=== PATIENT | female | born 1975 | race Caucasian/White ===

== ENCOUNTER 2017-08-04 08:00 | Emergency (ER) | payer MEDICAID ==
--- NOTE | 2017-08-04 08:43 | EDM.PDOC ---
ED HPI GENERAL MEDICAL PROBLEM - General Chief Complaint: Abdominal Pain Stated Complaint: ABDOMINAL PAIN Time Seen by Provider: 08/04/17 08:25 Source of Information: Reports: Patient, Family History Limitations: Reports: No Limitations - History of Present Illness INITIAL COMMENTS - FREE TEXT/NARRATIVE: 42-year-old female with right abdominal pain for the past 15 hours. It started roughly 5 PM last evening, is worsening and is now bothering her with movement. No fevers or chills. The pain started in the right upper abdomen but is now more generalized on the right side. She has a history of a cholecystectomy and tubal ligation. Denies diarrhea, nausea or vomiting or significant pain radiating to the back. No urinary symptoms. Onset: Gradual (Develop somewhat gradually last evening) Location: Reports: Abdomen Quality: Reports: Ache, Stabbing Severity: Moderate Associated Symptoms: Reports: No Other Symptoms Right Upper Abdomen Pain Score (Numeric/FACES): 4 - Related Data Allergies Allergy/AdvReac Type Severity Reaction Status Date / Time No Known Allergies Allergy Verified 08/04/17 08:27 Home Meds: Home Meds Loratadine 10 mg PO DAILY 08/04/17 [History] Ranitidine [Zantac] 150 mg PO DAILY 08/04/17 [History] Past Medical History HEENT History: Reports: Allergic Rhinitis Gastrointestinal History: Reports: Cholelithiasis, 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: 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 Uterine Bleeding, Endometrial Ablation, Neurological History: Reports: Migraines Dermatologic History: Reports: Eczema - Past Surgical History GI Surgical History: Reports: Cholecystectomy Female Surgical History: Reports: Tubal Ligation Social & Family History - Tobacco Use Smoking Status *Q: Never Smoker - Caffeine Use Caffeine Use: Reports: Soda - Recreational Drug Use Recreational Drug Use: No ED ROS GENERAL - Review of Systems Review Of Systems: See Below Constitutional: Denies: Fever, Chills HEENT: Reports: No Symptoms Respiratory: Denies: Shortness of Breath, Pleuritic Chest Pain Cardiovascular: Denies: Chest Pain GI/Abdominal: Reports: Abdominal Pain. Denies: Diarrhea, Nausea, Vomiting : Reports: No Symptoms Skin: Reports: No Symptoms Psychiatric: Reports: No Symptoms ED EXAM, GI/ABD - Physical Exam Exam: See Below Exam Limited By: No Limitations General Appearance: Alert, No Apparent Distress Eyes: Bilateral: Normal Appearance (No jaundice) Respiratory/Chest: No Respiratory Distress, Lungs Clear Cardiovascular: Regular Rate, Rhythm GI/Abdominal Exam: Soft, Tender (Patient is tender with mild guarding across the right abdomen, somewhat worse in the upper abdomen) Course - Vital Signs Last Recorded V/S: Last Vital Signs Temp 97.5 F 08/04/17 08:27 Pulse 84 08/04/17 08:27 Resp 14 08/04/17 08:27 BP 126/83 08/04/17 08:27 Pulse Ox 94 L 08/04/17 08:27 - Orders/Labs/Meds Orders: Active Orders 24 hr Category Date Time Status Abdomen Pelvis wo Cont [CT] Stat Exams 08/04/17 09:27 Taken Labs: Laboratory Tests 08/04/17 08/04/17 08/04/17 Range/Units 08:50 08:50 08:50 WBC 6.3 (4.5-11.0) K/uL RBC 5.17 (3.30-5.50) M/uL Hgb 15.2 H (12.0-15.0) g/dL Hct 43.4 (36.0-48.0) % MCV 84 (80-98) fL MCH 29 (27-31) pg MCHC 35 (32-36) % Plt Count 343 (150-400) K/uL Neut % (Auto) 65 (36-66) % Lymph % (Auto) 24 (24-44) % [place] % (Auto) 9 H (2-6) % Eos % (Auto) 2 (2-4) % Baso % (Auto) 1 (0-1) % Sodium 137 L (140-148) mmol/L Potassium 4.2 (3.6-5.2) mmol/L Chloride 104 (100-108) mmol/L Carbon Dioxide 21 (21-32) mmol/L Anion Gap 16.2 H (5.0-14.0) mmol/L BUN 17 (7-18) mg/dL Creatinine 0.9 (0.6-1.0) mg/dL Est Cr Clr Drug Dosing 67.36 mL/min Estimated GFR (MDRD) > 60 (>60) Glucose 103 (74-106) mg/dL Calcium 8.2 L (8.5-10.1) mg/dL Total Bilirubin 0.2 (0.2-1.0) mg/dL AST 16 (15-37) U/L ALT 19 (12-78) U/L Alkaline Phosphatase 65 (46-116) U/L Total Protein 7.2 (6.4-8.2) g/dL Albumin 3.5 (3.4-5.0) g/dL Globulin 3.7 H (2.3-3.5) g/dL Albumin/Globulin Ratio 1.0 L (1.2-2.2) Lipase 114 (73-393) U/L - Re-Assessments/Exams Free Text/Narrative Re-Assessment/Exam: 08/04/17 08:43 The possibility of an appendicitis is present. CBC, CMP and lipase were obtained. 08/04/17 10:04 Labs were normal but with the persistent pain a CT the abdomen was obtained. This is normal as well, I asked the patient to use an anti-inflammatory for the next few days and return if worsening despite treatment. Departure - Departure Time of Disposition: 10:50 Disposition: Home, Self-Care 01 Condition: Good Clinical Impression: Abdominal pain Qualifiers: Abdominal location: right lower quadrant Qualified Code(s): R10.31 - Right lower quadrant pain - Discharge Information Instructions: Abdominal Pain, Adult Referrals: Alayna Vega PA [Primary Care Provider] - Forms: ED Department Discharge Care Plan Goals: Try ibuprofen or naproxen for the next 24-48 hours, increase diet and activity as tolerated and return if worsening or concerns. - My Orders Last 24 Hours: My Active Orders 08/04/17 09:27 Abdomen Pelvis wo Cont [CT] Stat - Assessment/Plan Last 24 Hours: My Active Orders 08/04/17 09:27 Abdomen Pelvis wo Cont [CT] Stat
== END 2017-08-04 10:50 | disposition home or self-care (01) ==
LOC: JP.ED 08:00
DX: R10.31 Right lower quadrant pain (principal); K21.9 Gastro-esophageal reflux disease without esophagitis; Z79.899 Other long term (current) drug therapy
CPT/HCPCS: 36415; 74176; 80053; 83690; 85025; 99284-25

== ENCOUNTER 2018-05-09 17:58 | Emergency (ER) | payer MEDICAID ==
--- NOTE | 2018-05-09 18:49 | EDM.PDOC ---
ED HPI GENERAL MEDICAL PROBLEM - General Chief Complaint: Abdominal Pain Stated Complaint: RI SIDE PAIN Time Seen by Provider: 05/09/18 18:35 Source of Information: Reports: Patient, Family History Limitations: Reports: No Limitations - History of Present Illness INITIAL COMMENTS - FREE TEXT/NARRATIVE: Abdominal pain all day, now right lower quadrant. Denies nausea or vomiting, some diarrhea. Cholecystectomy and tubal only past surgeries. Last ate 4 hours ago. 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: 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 Uterine Bleeding, Endometrial Ablation, Neurological History: Reports: Migraines Dermatologic History: Reports: Eczema - Past Surgical History GI Surgical History: Reports: Cholecystectomy Female Surgical History: Reports: Tubal Ligation Social & Family History - Tobacco Use Smoking Status *Q: Never Smoker - Caffeine Use Caffeine Use: Reports: Coffee - Recreational Drug Use Recreational Drug Use: No ED ROS GENERAL - Review of Systems Review Of Systems: See Below Constitutional: Denies: Fever HEENT: Reports: No Symptoms Respiratory: Denies: Shortness of Breath, Cough Cardiovascular: Denies: Chest Pain GI/Abdominal: Reports: Abdominal Pain. Denies: Constipation, Diarrhea, Nausea, Vomiting : Reports: No Symptoms Skin: Reports: No Symptoms Neurological: Reports: No Symptoms Psychiatric: Reports: No Symptoms ED EXAM, GI/ABD - Physical Exam Exam: See Below Exam Limited By: No Limitations General Appearance: Alert, No Apparent Distress Eyes: Bilateral: Normal Appearance Head: Atraumatic Respiratory/Chest: No Respiratory Distress, Lungs Clear Cardiovascular: Regular Rate, Rhythm GI/Abdominal Exam: Soft, Guarding, Rebound (some rebound tenderness in right lower quadrant), Tender Course - Vital Signs Last Recorded V/S: Last Vital Signs Temp 97.6 F 05/09/18 18:34 Pulse 93 05/09/18 18:34 Resp 18 05/09/18 18:34 BP 143/91 H 05/09/18 18:34 Pulse Ox 93 L 05/09/18 18:23 - Orders/Labs/Meds Labs: Laboratory Tests 05/09/18 05/09/18 Range/Units 18:48 18:48 WBC 10.2 (4.5-11.0) K/uL RBC 4.81 (3.30-5.50) M/uL Hgb 13.9 (12.0-15.0) g/dL Hct 41.9 (36.0-48.0) % MCV 87 (80-98) fL MCH 29 (27-31) pg MCHC 33 (32-36) % Plt Count 379 (150-400) K/uL Neut % (Auto) 72 H (36-66) % Lymph % (Auto) 18 L (24-44) % [place] % (Auto) 8 H (2-6) % Eos % (Auto) 2 (2-4) % Baso % (Auto) 1 (0-1) % Sodium 143 (140-148) mmol/L Potassium 3.8 (3.6-5.2) mmol/L Chloride 107 (100-108) mmol/L Carbon Dioxide 24 (21-32) mmol/L Anion Gap 12.4 (5.0-14.0) mmol/L BUN 16 (7-18) mg/dL Creatinine 0.7 (0.6-1.0) mg/dL Est Cr Clr Drug Dosing 86.60 mL/min Estimated GFR (MDRD) > 60 (>60) Glucose 125 H (74-106) mg/dL Calcium 8.8 (8.5-10.1) mg/dL Meds: Medications Discontinued Medications Generic Name Dose Route Start Last Admin Trade Name Freq PRN Reason Stop Dose Admin Sodium Chloride 78 mls @ 3.5 mls/sec 05/09/18 19:00 Normal Saline IV 05/09/18 19:01 ONETIME ONE Iopamidol 136 ml 05/09/18 19:00 Isovue-300 (61%) IV . DIRECTED YOLIS Sodium Chloride 10 ml 05/09/18 18:59 Saline Flush FLUSH 05/09/18 19:00 ONETIME ONE - Re-Assessments/Exams Free Text/Narrative Re-Assessment/Exam: 05/09/18 19:00 cbc, bmp were drawn and ct will be ordered. 05/09/18 19:44 White count is normal, CT turned out normal as well. Patient was reassured she likely has viral gastroenteritis and it should improve. Continue with fluids and rest. Departure - Departure Time of Disposition: 19:58 Disposition: Home, Self-Care 01 Condition: Good Clinical Impression: Gastroenteritis - Discharge Information Instructions: Viral Gastroenteritis, Adult, [id number] Referrals: Alayna Vega PA [Primary Care Provider] - Forms: ED Department Discharge Care Plan Goals: Rest, fluids, and increase diet and activity as tolerated. Consider rechecking in 2-3 days if not improving satisfactorily.
[2018-05-09] MEDS ORDERED: Sodium Chloride 0.9% 10 ML Syringe FLUSH ONE (18:59)
[2018-05-09] MEDS ORDERED: Iopamidol 612 MG/ML 150 ML Bottle IV SCH (19:00)
--- NOTE | 2018-05-09 19:39 | CRLCT ---
INDICATION: Right lower quadrant pain TECHNIQUE: CT abdomen and pelvis acquired without IV contrast. COMPARISON: August 04, 2017 FINDINGS: Lower chest: Unremarkable. Liver: Unremarkable. Spleen: Unremarkable. Pancreas: Unremarkable. Gallbladder and bile ducts: S/p cholecystectomy. Adrenal glands: Unremarkable. Kidneys: Unremarkable. GI tract: Unremarkable. Appendix is normal. Vascular structures: Unremarkable. Lymph nodes: Unremarkable. Miscellaneous: Unremarkable. No free air or significant free fluid. Pelvic Organs: Unremarkable. Bones: Unremarkable for age. IMPRESSION: No etiology seen to explain right lower quadrant pain. Status post cholecystectomy. Please note that all CT scans at this facility use dose modulation, iterative reconstruction, and/or weight-based dosing when appropriate to reduce radiation dose to as low as reasonably achievable. Dictated by Kimberly Kraft MD @ May 09 2018 7:34PM Signed by Dr. Kimberly Kraft @ May 09 2018 7:38PM
== END 2018-05-09 19:59 | disposition home or self-care (01) ==
LOC: JP.ED 17:58
DX: K52.9 Noninfective gastroenteritis and colitis, unspecified (principal); K21.9 Gastro-esophageal reflux disease without esophagitis; Z79.899 Other long term (current) drug therapy
CPT/HCPCS: 36415; 74176; 80048; 85025; 99284-25

== ENCOUNTER 2019-09-11 16:25 | Emergency (ER) | payer MEDICAID ==
--- NOTE | 2019-09-11 17:26 | EDM.PDOC ---
ED HPI GENERAL MEDICAL PROBLEM - General Chief Complaint: Lower Extremity Injury/Pain Stated Complaint: LEFT ANKLE PAIN Time Seen by Provider: 09/11/19 17:10 Source of Information: Reports: Patient, Family History Limitations: Reports: No Limitations - History of Present Illness INITIAL COMMENTS - FREE TEXT/NARRATIVE: 44-year-old female fell out of bed last night bumping her left ankle on the floor. Today it is sore so she wanted it checked. There is no swelling or bruising. No other injury. Onset: Sudden Duration: Hour(s): (About 24 hours ago) Location: Reports: Lower Extremity, Left Associated Symptoms: Reports: No Other Symptoms Left Ankle Pain Score (Numeric/FACES): 3 - Related Data Allergies Allergy/AdvReac Type Severity Reaction Status Date / Time No Known Allergies Allergy Verified 09/11/19 16:53 Home Meds: Home Meds Famotidine 1 tab PO BID 09/11/19 [History] Montelukast [Singulair] 10 mg PO DAILY 09/11/19 [History] atorvaSTATin [Lipitor] 10 mg PO BEDTIME 09/11/19 [History] Past Medical History HEENT History: Reports: Allergic Rhinitis Gastrointestinal History: Reports: Cholelithiasis, GERD 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: 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 Uterine Bleeding, Endometrial Ablation, Musculoskeletal History: Reports: Fibromyalgia Neurological History: Reports: Migraines Dermatologic History: Reports: Eczema - Past Surgical History Head Surgeries/Procedures: Reports: None HEENT Surgical History: Reports: None GI Surgical History: Reports: Cholecystectomy Female Surgical History: Reports: None, Tubal Ligation Neurological Surgical History: Reports: None Musculoskeletal Surgical History: Reports: None Oncologic Surgical History: Reports: None Dermatological Surgical History: Reports: None Social & Family History - Tobacco Use Smoking Status *Q: Never Smoker - Caffeine Use Caffeine Use: Reports: Coffee, Energy Drinks, Soda, Tea - Recreational Drug Use Recreational Drug Use: No Review of Systems - Review of Systems Review Of Systems: See Below Constitutional: Denies: Fever Respiratory: Reports: No Symptoms Cardiovascular: Reports: No Symptoms Skin: Denies: Bruising Neurological: Denies: Paresthesia ED EXAM, GENERAL - Physical Exam Exam: See Below Exam Limited By: No Limitations General Appearance: Alert, No Apparent Distress Respiratory/Chest: No Respiratory Distress Extremities: Other (Exam is otherwise limited to the lower extremities. The ankles look symmetric, there is no tenderness to palpation on the medial or lateral malleolus of the left ankle. There is some slight discomfort on the medial aspect of the foot but no significant swelling, bruising or deformity. Bearing weight is just mildly tender.) Course - Vital Signs Last Recorded V/S: Last Vital Signs Temp 96.3 F L 09/11/19 16:52 Pulse 86 09/11/19 16:52 Resp 13 09/11/19 16:52 BP 128/75 09/11/19 16:52 Pulse Ox 96 09/11/19 16:52 - Re-Assessments/Exams Free Text/Narrative Re-Assessment/Exam: 09/11/19 17:25 Explained to the patient that this is very unlikely broken. I do not think an x-ray is necessary, 3 inch Andi wrap was applied to the foot and she felt that helped her discomfort. She will increase activity as tolerated and recheck in 3 to 4 days if not improving. Departure - Departure Time of Disposition: 17:33 Disposition: Home, Self-Care 01 Clinical Impression: Contusion of left foot Qualifiers: Encounter type: initial encounter Qualified Code(s): S90.32XA - Contusion of left foot, initial encounter - Discharge Information Instructions: Contusion, [id number] Referrals: Alayna Vega PA [Primary Care Provider] - Forms: ED Department Discharge Care Plan Goals: Wrap foot for comfort, ibuprofen or naproxen will help and increase activity as tolerated. Recheck next week if not improving satisfactorily. Sepsis Event Note (ED) - Evaluation Sepsis Screening Result: No Definite Risk - Focused Exam Vital Signs: Vital Signs Temp Pulse Resp BP Pulse Ox 09/11/19 16:52 96.3 F L 86 13 128/75 96 09/11/19 16:47 96.3 F L 86 13 128/75 96
== END 2019-09-11 17:33 | disposition home or self-care (01) ==
LOC: JP.ED 16:25
DX: S90.32XA Contusion of left foot, initial encounter (principal); K21.9 Gastro-esophageal reflux disease without esophagitis; Z79.899 Other long term (current) drug therapy; W06.XXXA Fall from bed, initial encounter
CPT/HCPCS: 99283

== ENCOUNTER 2019-11-05 09:21 | Day surgery (SDC) | payer MEDICAID ==
[2019-11-05] MEDS ORDERED: Midazolam 1 MG/ML 2 ML SDV ONE (10:14)
[2019-11-05] MEDS ORDERED: fentaNYL 100 MCG/2 ML SDV ONE (10:14)
[2019-11-05] MEDS ORDERED: Propofol 200 MG/20 ML SDV ONE (10:15)
[2019-11-05] MEDS ORDERED: Dextrose 5%-Lactated Ringers 1,000 ML IV SCH (10:45)
[2019-11-05] MEDS ORDERED: Glycopyrrolate 0.2 MG/ML 2 ML SDV IVPUSH ONE (11:30)
[2019-11-05] MEDS ORDERED: Pantoprazole 40 MG Vial IVPUSH ONE (12:45)
--- NOTE | 2019-11-17 14:02 | OR ---
DATE OF PROCEDURE: 11/05/2019 SURGEON: Jani Mandel MD PREOPERATIVE DIAGNOSIS: Gastroesophageal reflux disease. POSTOPERATIVE DIAGNOSES: 1. Small hiatal hernia with wide-open esophagogastric junction and active gastroesophageal reflux disease. 2. Moderate gastritis involving body and antrum of the stomach. OPERATIVE PROCEDURES: Esophagogastroduodenoscopy with: 1. Biopsies of esophagogastric junction for histologic evaluation. 2. Biopsies of antrum for CLOtest. ANESTHESIA: IV sedation. INDICATIONS FOR PROCEDURE: This is a 44-year-old presenting with ongoing gastroesophageal reflux disease, which is becoming progressively more difficult to control. She presently is on Pepcid. Plan is to proceed with an upper GI endoscopy with biopsies as indicated. Potential risks including bleeding and perforation were discussed, and the patient wishes to proceed. DETAILS OF PROCEDURE: The patient was taken to the operating room and placed in a left lateral decubitus position. IV sedation was administered after which the upper GI endoscope was passed orally through the length of esophagus into the stomach with retroflexion view of the fundus, thereafter, through the pyloric channel and into the proximal duodenum. Findings included normal hypopharynx, larynx, upper esophageal sphincter, esophageal body, and EG junction. The patient was noted to have a small hiatal hernia but essentially a wide- open esophagogastric junction and there was a quite active gastroesophageal reflux disease present with there being some linear ulcers. There was no plaquing or stricturing or gross signs of neoplasia. Within the stomach, there was moderate gastritis without erosions or ulcers within the body and antrum. Pyloric channel and duodenum at junction of the third and fourth portions were otherwise unremarkable. At this point, biopsies were taken from the antrum and sent for CLOtest for H. pylori. Multiple biopsies were then obtained from esophagogastric junction, sent for histologic evaluation. Minimal bleeding from the biopsy sites was seen, and the procedure was then concluded. We will give the patient Protonix 40 mg IV push in the recovery room and thereafter begin Protonix 40 mg daily. We will see her back next week for recheck to discuss treatment options and see how she is doing with the more intensive medical management. Jani Mandel MD /[id number]
== END 2019-11-05 14:00 | disposition home or self-care (01) ==
LOC: JP.SDS 09:21
PROVIDERS: ATTEND Surgery
DX: K29.70 Gastritis, unspecified, without bleeding (principal); K44.9 Diaphragmatic hernia without obstruction or gangrene; K31.89 Other diseases of stomach and duodenum; K21.9 Gastro-esophageal reflux disease without esophagitis; E66.9 Obesity, unspecified; Z68.37 Body mass index [BMI] 37.0-37.9, adult
CPT/HCPCS: 43239; 87081; 88305; C9113; J2250; J2704; J3010; J3490; J7121

== ENCOUNTER 2020-03-27 09:12 | Emergency (ER) | payer MEDICAID ==
--- NOTE | 2020-03-27 10:18 | EDM.PDOC ---
ED HPI GENERAL MEDICAL PROBLEM - General Chief Complaint: Lower Extremity Injury/Pain Stated Complaint: FELL AND HURT RIGHT LEG Time Seen by Provider: 03/27/20 10:15 Source of Information: Reports: Patient, RN Notes Reviewed History Limitations: Reports: No Limitations - History of Present Illness INITIAL COMMENTS - FREE TEXT/NARRATIVE: 44-year-old female presents emergency department a complaint of right leg pain, she recently fell early this morning landed on the ground hit her tib-fib area about midshaft, pain with ambulation Right Lower Leg Pain Score (Numeric/FACES): 4 - Related Data Allergies Allergy/AdvReac Type Severity Reaction Status Date / Time No Known Allergies Allergy Verified 03/27/20 10:08 Home Meds: Home Meds Montelukast [Singulair] 10 mg PO DAILY 09/11/19 [History] atorvaSTATin [Lipitor] 10 mg PO BEDTIME 09/11/19 [History] Acetaminophen/Caffeine [Excedrin Tension Headache] 1 tab PO DAILY PRN 11/05/19 [History] Pantoprazole [ProTONIX] 40 mg PO DAILY 03/27/20 [History] Past Medical History HEENT History: Reports: Allergic Rhinitis, Sinusitis Gastrointestinal History: Reports: Cholelithiasis, GERD Genitourinary History: Reports: UTI, 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: 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 Uterine Bleeding, Endometrial Ablation, Musculoskeletal History: Reports: Fibromyalgia Neurological History: Reports: Migraines Endocrine/Metabolic History: Reports: Obesity/BMI 30+ Dermatologic History: Reports: Eczema - Infectious Disease History Infectious Disease History: Reports: Chicken Pox - Past Surgical History Head Surgeries/Procedures: Reports: None HEENT Surgical History: Reports: None GI Surgical History: Reports: Cholecystectomy Female Surgical History: Reports: Endometrial Ablation, Tubal Ligation Neurological Surgical History: Reports: None Musculoskeletal Surgical History: Reports: Arthroscopic Knee, Shoulder Surgery Oncologic Surgical History: Reports: None Dermatological Surgical History: Reports: None Social & Family History - Tobacco Use Tobacco Use Status *Q: Never Tobacco User - Caffeine Use Caffeine Use: Reports: Coffee, Soda Caffeine Use Comment: occ - Recreational Drug Use Recreational Drug Use: No Review of Systems - Review of Systems Review Of Systems: See Below Musculoskeletal: Reports: Leg Pain ED EXAM, GENERAL - Physical Exam Exam: See Below Free Text/Narrative:: Examination the right leg I do appreciate a superficial abrasion about midshaft she is tender to the touch in that area slight amount of bruising is appreciated superior aspect of the lower extremity anterior portion there is no tenderness to the knee with flexion or extension no tenderness to the ankle with flexion or extension or to palpation either joint pedal pulses +2 Course - Vital Signs Last Recorded V/S: Last Vital Signs Temp 98.2 F 03/27/20 09:58 Pulse 78 03/27/20 09:58 Resp 16 03/27/20 09:58 BP 134/81 03/27/20 09:58 Pulse Ox 96 03/27/20 09:58 - Orders/Labs/Meds Orders: Active Orders 24 hr Category Date Time Status Tibia Fibula Rt [CR] Stat Exams 03/27/20 10:16 Taken Departure - Departure Time of Disposition: 10:48 Disposition: Home, Self-Care 01 Condition: Good Clinical Impression: Contusion of right lower extremity Qualifiers: Encounter type: initial encounter Qualified Code(s): S80.11XA - Contusion of right lower leg, initial encounter - Discharge Information Instructions: Contusion, [id number] Referrals: Alayna Vega PA [Primary Care Provider] - Forms: ED Department Discharge Additional Instructions: Use ibuprofen or Tylenol as needed for pain control, rest and ice can be helpful, please followup with your primary care provider in 3-5 days if not better, please call return to the emergency department with worsening of symptoms. Sepsis Event Note (ED) - Evaluation Sepsis Screening Result: No Definite Risk - Focused Exam Vital Signs: Vital Signs Temp Pulse Resp BP Pulse Ox 03/27/20 09:58 98.2 F 78 16 134/81 96 - My Orders Last 24 Hours: My Active Orders 03/27/20 10:16 Tibia Fibula Rt [CR] Stat - Assessment/Plan Last 24 Hours: My Active Orders 03/27/20 10:16 Tibia Fibula Rt [CR] Stat Plan: Assessment Acuity = acute Site and laterality = contusion right lower extremity Etiology = trauma Manifestations = none Location of injury = Home Lab values = tib-fib x-ray I did review films myself I cannot appreciate any acute process, the official read from radiology is pending Plan Recommend nonsteroidal anti-inflammatories rest and ice follow-up primary care 3 to 5 days if not better This note was dictated using [employer] voice recognition software please call with any questions on syntax or grammar.
--- NOTE | 2020-03-28 09:58 | CR ---
Tibia Fibula Rt CLINICAL HISTORY: Trauma FINDINGS: Two views show no evidence of fracture or bone destruction. There is some soft tissue prominence anterior to the tibia. This may be swelling or hematoma Impression: Negative
== END 2020-03-27 10:58 | disposition home or self-care (01) ==
LOC: JP.ED 09:12
DX: S80.11XA Contusion of right lower leg, initial encounter (principal); K21.9 Gastro-esophageal reflux disease without esophagitis; E66.9 Obesity, unspecified; Z79.899 Other long term (current) drug therapy; W01.0XXA Fall on same level from slipping, tripping and stumbling without subsequent striking against object, initial encounter
CPT/HCPCS: 73590-26-RT; 73590-RT; 99282; 99283-25

== ENCOUNTER 2020-09-26 20:49 | Emergency (ER) | payer MEDICAID ==
--- NOTE | 2020-09-26 21:49 | EDM.PDOC ---
ED HPI GENERAL MEDICAL PROBLEM - General Chief Complaint: Lower Extremity Injury/Pain Stated Complaint: RIGHT FOOT/ANKLE PAIN Time Seen by Provider: 09/26/20 20:58 Source of Information: Reports: Patient, Family, RN Notes Reviewed History Limitations: Reports: No Limitations - History of Present Illness INITIAL COMMENTS - FREE TEXT/NARRATIVE: 45-year-old female presents emergency department day complaint of right ankle pain, she states she stepped out of the vehicle she is not sure of the exact mechanisms of action sudden onset of pain was unable to bear weight and fell to the ground. She did not injure herself anyplace else now she has difficulty ambulating Right Ankle Pain Score (Numeric/FACES): 5 - Related Data Allergies Allergy/AdvReac Type Severity Reaction Status Date / Time No Known Allergies Allergy Verified 09/26/20 21:33 Home Meds: Home Meds Montelukast [Singulair] 10 mg PO DAILY 09/11/19 [History] atorvaSTATin [Lipitor] 10 mg PO BEDTIME 09/11/19 [History] Acetaminophen/Caffeine [Excedrin Tension Headache] 1 tab PO DAILY PRN 11/05/19 [History] Pantoprazole [ProTONIX] 40 mg PO DAILY 03/27/20 [History] Past Medical History HEENT History: Reports: Allergic Rhinitis, Sinusitis Gastrointestinal History: Reports: Cholelithiasis, GERD Genitourinary History: Reports: UTI, Recurrent [employer] History: Reports: 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 Uterine Bleeding, Endometrial Ablation, Musculoskeletal History: Reports: Fibromyalgia Neurological History: Reports: Migraines Endocrine/Metabolic History: Reports: Obesity/BMI 30+ Dermatologic History: Reports: Eczema - Infectious Disease History Infectious Disease History: Reports: Chicken Pox - Past Surgical History Head Surgeries/Procedures: Reports: None HEENT Surgical History: Reports: None GI Surgical History: Reports: Cholecystectomy Female Surgical History: Reports: Endometrial Ablation, Tubal Ligation Neurological Surgical History: Reports: None Musculoskeletal Surgical History: Reports: Arthroscopic Knee, Shoulder Surgery Oncologic Surgical History: Reports: None Dermatological Surgical History: Reports: None Social & Family History - Tobacco Use Tobacco Use Status *Q: Never Tobacco User - Caffeine Use Caffeine Use: Reports: None Caffeine Use Comment: occ - Recreational Drug Use Recreational Drug Use: No Review of Systems - Review of Systems Review Of Systems: See Below Musculoskeletal: Reports: Foot Pain, Joint Pain ED EXAM, GENERAL - Physical Exam Exam: See Below Free Text/Narrative:: Examination of the ankle and on appreciate any erythema there is no edema she has limited range of motion secondary to pain pedal pulses +2 will not tolerate much of an exam both sides of the ankle Course - Vital Signs Last Recorded V/S: Last Vital Signs Temp 97.8 F 09/26/20 21:40 Pulse 89 09/26/20 21:40 Resp 16 09/26/20 21:40 BP 137/83 09/26/20 21:40 Pulse Ox 96 09/26/20 21:40 - Orders/Labs/Meds Orders: Active Orders 24 hr Category Date Time Status Ankle Min 3V Rt [CR] Stat Exams 09/26/20 21:48 Taken DME for Discharge [COMM] Per Unit Routine Oth 09/26/20 22:03 Ordered Departure - Departure Time of Disposition: 22:04 Disposition: Home, Self-Care 01 Condition: Fair Clinical Impression: Right ankle sprain Qualifiers: Encounter type: initial encounter Involved ligament of ankle: unspecified ligament Qualified Code(s): S93.401A - Sprain of unspecified ligament of right ankle, initial encounter - Discharge Information Instructions: Ankle Sprain Referrals: Alayna Vega PA [Primary Care Provider] - Forms: ED Department Discharge Additional Instructions: Continue to use the walking boot and crutches for pain control, please follow-up with your primary care in the next 3 to 5 days for reevaluation, continue to use ice rest nonsteroidal anti-inflammatory such as ibuprofen or naproxen Aleve or Tylenol Sepsis Event Note (ED) - Evaluation Sepsis Screening Result: No Definite Risk - Focused Exam Vital Signs: Vital Signs Temp Pulse Resp BP Pulse Ox 09/26/20 21:40 97.8 F 89 16 137/83 96 09/26/20 21:25 97.8 F 89 16 137/83 96 - My Orders Last 24 Hours: My Active Orders 09/26/20 21:48 Ankle Min 3V Rt [CR] Stat 09/26/20 22:03 DME for Discharge [COMM] Per Unit Routine - Assessment/Plan Last 24 Hours: My Active Orders 09/26/20 21:48 Ankle Min 3V Rt [CR] Stat 09/26/20 22:03 DME for Discharge [COMM] Per Unit Routine Plan: Assessment Acuity = acute Site and laterality = right ankle sprain Etiology = secondary to trauma Manifestations = none Location of injury = Home Lab values = ankle x-ray I did review films myself I cannot appreciate any acute process, the official read from radiology is pending Plan She is placed in a walking boot has crutches of her own follow-up primary care 3 to 5 days This note was dictated using [employer] voice recognition software please call with any questions on syntax or grammar.
--- NOTE | 2020-09-27 09:12 | CR ---
Ankle Min 3V Rt CLINICAL HISTORY: Injury FINDINGS: The soft tissues are mildly swollen. No acute fracture or dislocation is noted. Ankle mortise is intact. Articular surfaces are smooth. Impression: Soft tissue swelling No fracture
== END 2020-09-26 22:34 | disposition home or self-care (01) ==
LOC: JP.ED 20:49
DX: S93.401A Sprain of unspecified ligament of right ankle, initial encounter (principal); K21.9 Gastro-esophageal reflux disease without esophagitis; E66.9 Obesity, unspecified; Z68.41 Body mass index [BMI] 40.0-44.9, adult; Z79.899 Other long term (current) drug therapy; X50.1XXA Overexertion from prolonged static or awkward postures, initial encounter
CPT/HCPCS: 73610-26-RT; 73610-RT; 99283-25

== ENCOUNTER 2021-01-11 18:17 | Emergency (ER) | payer MEDICAID | END 2021-01-11 19:25 | disposition left against medical advice (07) | LOC: JP.ED 18:17 | DX: T18.128A Food in esophagus causing other injury, initial encounter (principal); Z53.21 Procedure and treatment not carried out due to patient leaving prior to being seen by health care provider ==

== ENCOUNTER 2022-02-03 06:22 | Emergency (ER) | payer MEDICAID | END 2022-02-03 07:59 | disposition home or self-care (01) | LOC: JP.ED 06:22 | DX: S29.012A Strain of muscle and tendon of back wall of thorax, initial encounter (principal); E66.9 Obesity, unspecified; Z68.38 Body mass index [BMI] 38.0-38.9, adult; Z79.899 Other long term (current) drug therapy; Z90.49 Acquired absence of other specified parts of digestive tract | CPT/HCPCS: 99283 ==

== ENCOUNTER 2023-11-14 18:30 | Emergency (ER) | payer MEDICAID | END 2023-11-14 19:57 | disposition home or self-care (01) | LOC: JP.ED 18:30 | DX: M79.672 Pain in left foot (principal); K21.9 Gastro-esophageal reflux disease without esophagitis; E66.9 Obesity, unspecified; Z79.899 Other long term (current) drug therapy; Z68.38 Body mass index [BMI] 38.0-38.9, adult | CPT/HCPCS: 73630-26-LT; 73630-LT; 99283 ==

== ENCOUNTER 2024-04-11 18:34 | Emergency (ER) | payer MEDICAID | END 2024-04-11 20:04 | disposition home or self-care (01) | LOC: JP.ED 18:34 | DX: M19.041 Primary osteoarthritis, right hand (principal); K21.9 Gastro-esophageal reflux disease without esophagitis; E66.9 Obesity, unspecified; Z90.49 Acquired absence of other specified parts of digestive tract; Z79.899 Other long term (current) drug therapy; Z68.39 Body mass index [BMI] 39.0-39.9, adult | CPT/HCPCS: 73140-26-F9; 73140-F9; 99283 ==